=== PATIENT | female | born 1960 ===

== ENCOUNTER 2017-01-10 01:03 | Emergency (ER) | payer MEDICAID ==
[2017-01-10 01:25] VITALS: RESP 18
--- NOTE | 2017-01-10 01:51 | C.PDOC ---
History Of Present Illness 56 year old female complains of right leg pain for the last 4 days. Patient reports pain in right lower back and radiates down posterior thigh to whole leg. Patient states pain is worse with walking or sitting. Patient notes taking Advil for pain but not relief. Patient denies injury, numbness, weakness, nausea , vomiting, fever, chills, dysuria, or any other complaints. Time Seen by Provider: 01/10/17 01:34 Chief Complaint (Nursing): Lower Extremity Problem/Injury History Per: Patient History/Exam Limitations: no limitations Onset/Duration Of Symptoms: Days Current Symptoms Are (Timing): Still Present Severity: Mild Past Medical History Reviewed: Historical Data, Nursing Documentation, Vital Signs Vital Signs: Last Vital Signs Temp 97.6 F 01/10/17 05:59 Pulse 86 01/10/17 05:59 Resp 18 01/10/17 05:59 BP 107/67 01/10/17 05:59 Pulse Ox 98 01/10/17 05:59 - Medical History PMH: Bipolar Disorder Family History: States: Unknown Family Hx - Social History Hx Alcohol Use: No Hx Substance Use: No - Immunization History Hx Tetanus Toxoid Vaccination: No Hx Influenza Vaccination: No Hx Pneumococcal Vaccination: No Review Of Systems Constitutional: Negative for: Fever, Chills, Other (Injury) Cardiovascular: Negative for: Chest Pain, Palpitations Respiratory: Negative for: Cough, Shortness of Breath Gastrointestinal: Negative for: Nausea, Vomiting, Abdominal Pain, Diarrhea Musculoskeletal: Positive for: Back Pain, Leg Pain (Right leg ) Neurological: Negative for: Weakness, Numbness, Headache Physical Exam - Physical Exam Appears: Non-toxic, No Acute Distress Skin: Warm, Dry Head: Atraumatic, Normacephalic Eye(s): bilateral: Normal Inspection, EOMI Nose: Normal Neck: Normal ROM Chest: Symmetrical Cardiovascular: Rhythm Regular Respiratory: Normal Breath Sounds, No Rales, No Rhonchi, No Wheezing Gastrointestinal/Abdominal: Soft, No Tenderness, No Guarding, No Rebound Back: Normal Inspection, No Vertebral Tenderness, No Decreased ROM, No Paraspinal Tenderness Extremity: No Normal ROM (pain with flexion of right leg), Tenderness (Diffuse tenderness to right leg, nonfocal), No Calf Tenderness, No Deformity, No Swelling, No Other (No ecchymosis, erythema, mass, or swelling to affected right leg) Neurological/Psych: Oriented x3, Normal Speech, Normal Motor, Normal Sensation Gait: Steady ED Course And Treatment O2 Sat by Pulse Oximetry: 95 (Room air) Pulse Ox Interpretation: Normal Medical Decision Making Medical Decision Making: Impression: 56 year old female c/o right leg pain. low clinical suspicion for DVT or cellulitis, likely sciatica and muscle strain Plans: -Toradol -Valium -Reassess and disposition 0350: Patient reevaluated and continues to have pain and states the Toradol did not help her pain. Morphine ordered. 0501: Patient reevaluated and now reports pain has much improved. She is ambulatory without signs of discomfort and feels comfortable going home. Advise stretch exercises and will discharge with Rx Disposition Counseled Patient/Family Regarding: Need For Followup, Rx Given - Disposition Referrals: Non [facility] Provider, [Primary Care Provider] - Disposition: HOME/ ROUTINE Disposition Time: 05:01 Condition: IMPROVED Additional Instructions: Vaya a landis mdico o la clnica en 2-5 hyde sin falta, para mas evaluacin. Robinson los medicamentos eleno indicado. Volver a la delvin de emergencia en cualquier momento si los sntomas persisten o empeoran. Prescriptions: traMADol [Ultram] 50 mg PO Q8 #15 tab Instructions: Sciatica (ED) Print Language: BURMESE - POA Present On Arrival: None - Clinical Impression Clinical Impression: Leg pain, Lumbar radiculopathy - Scribe Statement The provider has reviewed the documentation as recorded by the Scribe Herlinda marks All medical record entries made by the Scribe were at my direction and personally dictated by me. I have reviewed the chart and agree that the record accurately reflects my personal performance of the history, physical exam, medical decision making, and the department course for this patient. I have also personally directed, reviewed, and agree with the discharge instructions and disposition.
[2017-01-10] MEDS ORDERED: Morphine 4 MG/ML VIAL ONE (04:12)
[2017-01-10 05:59] VITALS: BP 107/67; PULSE 86; TEMP 97.6
[2017-01-10 06:20] VITALS: O2SAT 95
== END 2017-01-10 05:59 | disposition home or self-care (01) ==
LOC: C.ER 01:03 → SUPCPDRO 01:03 → C.ER 05:59
DX: M54.16 Radiculopathy, lumbar region (principal)
CPT/HCPCS: 96372; 99283; J1885; J2270